=== PATIENT | female | born 1945 | race Two or more races ===

== ENCOUNTER 2017-10-16 11:10 | Outpatient (CLI) | payer OTHER ==
[~2017-10-16 11:10] MED LIST: PERCOCET 5/3251 TAB PO
== END 2017-10-16 11:28 | disposition home or self-care (01) ==
LOC: RAD 501 11:10
DX: I11.9 Hypertensive heart disease without heart failure (principal)

== ENCOUNTER → 2017-10-22 | Outpatient (CLI) | payer OTHER | END | disposition home or self-care (01) | LOC: NUCLEAR 10:30 | DX: M81.0 Age-related osteoporosis without current pathological fracture (principal) ==

== ENCOUNTER 2017-12-26 11:29 | Outpatient (CLI) | payer OTHER | END 2017-12-26 11:32 | disposition home or self-care (01) | LOC: MAMO-SONO 11:29 | DX: Z12.31 Encounter for screening mammogram for malignant neoplasm of breast (principal); Z87.898 Personal history of other specified conditions; R92.1 Mammographic calcification found on diagnostic imaging of breast; N63.11 Unspecified lump in the right breast, upper outer quadrant; N63.12 Unspecified lump in the right breast, upper inner quadrant ==

== ENCOUNTER 2018-09-11 14:09 | Outpatient (CLI) | payer OTHER | END 2018-09-11 14:15 | disposition home or self-care (01) | LOC: RAD 501 14:09 | DX: I11.9 Hypertensive heart disease without heart failure (principal); R06.02 Shortness of breath ==

== ENCOUNTER 2018-11-29 12:21 | Outpatient (CLI) | payer OTHER | END 2018-11-29 12:25 | disposition home or self-care (01) | LOC: RAD 12:21 | DX: M17.0 Bilateral primary osteoarthritis of knee (principal) ==

== ENCOUNTER 2018-12-31 11:15 | Outpatient (CLI) | payer OTHER | END 2018-12-31 11:21 | disposition home or self-care (01) | LOC: RAD 11:15 | DX: M25.561 Pain in right knee (principal); M25.562 Pain in left knee ==

== ENCOUNTER 2018-12-31 11:44 | Outpatient (CLI) | payer OTHER | END 2018-12-31 15:01 | disposition home or self-care (01) | LOC: MRI 11:44 | DX: M17.12 Unilateral primary osteoarthritis, left knee (principal); M23.207 Derangement of unspecified meniscus due to old tear or injury, left knee | CPT/HCPCS: 73721 ==

== ENCOUNTER → 2020-02-19 | Outpatient (CLI) | payer OTHER | END | disposition home or self-care (01) | LOC: MAMO-SONO 10:45 | PROVIDERS: ATTEND Specialist | DX: Z12.31 Encounter for screening mammogram for malignant neoplasm of breast (principal); N64.89 Other specified disorders of breast ==

== ENCOUNTER 2020-10-29 09:27 | Outpatient (CLI) | payer OTHER | END 2020-10-29 09:37 | disposition home or self-care (01) | LOC: RAD 09:27 | PROVIDERS: ATTEND Internal Medicine Geriatric Medicine | DX: R07.89 Other chest pain (principal); I11.9 Hypertensive heart disease without heart failure; R06.02 Shortness of breath ==

== ENCOUNTER 2021-02-23 09:41 | Outpatient (CLI) | payer OTHER | END 2021-02-23 09:52 | disposition home or self-care (01) | LOC: MAMO-SONO 09:41 | PROVIDERS: ATTEND Specialist | DX: N60.11 Diffuse cystic mastopathy of right breast (principal); N60.12 Diffuse cystic mastopathy of left breast; Z12.31 Encounter for screening mammogram for malignant neoplasm of breast ==

== ENCOUNTER 2021-09-02 13:50 | Outpatient (CLI) | payer OTHER | END 2021-09-02 13:55 | disposition home or self-care (01) | LOC: RAD 13:50 | PROVIDERS: ATTEND Internal Medicine Geriatric Medicine | DX: M17.0 Bilateral primary osteoarthritis of knee (principal) ==

== ENCOUNTER 2022-03-16 10:14 | Outpatient (CLI) | payer OTHER | END 2022-03-16 10:25 | disposition home or self-care (01) | LOC: MAMO-SONO 10:14 | PROVIDERS: ATTEND Specialist | DX: N60.11 Diffuse cystic mastopathy of right breast (principal); N60.12 Diffuse cystic mastopathy of left breast; Z12.31 Encounter for screening mammogram for malignant neoplasm of breast ==

== ENCOUNTER 2022-08-25 10:44 | Outpatient (CLI) | payer OTHER | END 2022-08-25 10:55 | disposition home or self-care (01) | LOC: RAD 10:44 | PROVIDERS: ATTEND Orthopaedic Surgery Sports Medicine | DX: M25.561 Pain in right knee (principal); M25.562 Pain in left knee ==

== ENCOUNTER 2022-12-06 09:44 | Outpatient (CLI) | payer OTHER | END 2022-12-06 09:49 | disposition home or self-care (01) | LOC: RAD 09:44 | PROVIDERS: ATTEND Internal Medicine Geriatric Medicine | DX: R06.02 Shortness of breath (principal); I11.9 Hypertensive heart disease without heart failure ==

== ENCOUNTER 2022-12-13 13:20 | Outpatient (CLI) | payer OTHER | END 2022-12-13 13:21 | disposition home or self-care (01) | LOC: NUCLEAR 13:20 | PROVIDERS: ATTEND Internal Medicine Geriatric Medicine | DX: M81.0 Age-related osteoporosis without current pathological fracture (principal); M15.0 Primary generalized (osteo)arthritis ==

== ENCOUNTER 2023-05-14 12:57 | Outpatient (CLI) | payer OTHER | END 2023-05-14 13:09 | disposition home or self-care (01) | LOC: RAD 12:57 | PROVIDERS: ATTEND Specialist | DX: N60.12 Diffuse cystic mastopathy of left breast (principal); M47.26 Other spondylosis with radiculopathy, lumbar region ==

== ENCOUNTER 2023-07-11 13:13 | Outpatient (CLI) | payer OTHER | END 2023-07-11 13:20 | disposition home or self-care (01) | LOC: RAD 13:13 | PROVIDERS: ATTEND Orthopaedic Surgery Sports Medicine | DX: M25.511 Pain in right shoulder (principal) ==

== ENCOUNTER 2024-01-18 11:23 | Outpatient (CLI) | payer OTHER | END 2024-01-18 11:26 | disposition home or self-care (01) | LOC: MRI 11:23 | PROVIDERS: ATTEND Orthopaedic Surgery Sports Medicine | DX: M75.121 Complete rotator cuff tear or rupture of right shoulder, not specified as traumatic (principal) | CPT/HCPCS: 73221 ==

== ENCOUNTER 2024-04-18 12:15 | Outpatient (CLI) | payer OTHER | END 2024-04-18 12:21 | disposition home or self-care (01) | LOC: RAD 12:15 | PROVIDERS: ATTEND Orthopaedic Surgery Sports Medicine | DX: M25.561 Pain in right knee (principal); M25.562 Pain in left knee ==

== ENCOUNTER → 2024-06-06 | Outpatient (CLI) | payer OTHER | END | disposition home or self-care (01) | LOC: MAMO-SONO 10:16 | PROVIDERS: ATTEND Specialist | DX: N60.11 Diffuse cystic mastopathy of right breast (principal); N60.12 Diffuse cystic mastopathy of left breast; D24.2 Benign neoplasm of left breast; Z12.31 Encounter for screening mammogram for malignant neoplasm of breast ==

== ENCOUNTER 2024-08-08 14:28 | Emergency (ER) | payer OTHER ==
[~2024-08-08] VITALS: Ht 147.3 cm; Wt 65.3 kg
[2024-08-08] MEDS ORDERED: COZAAR25 MG PO (14:41)
[2024-08-08] MEDS ORDERED: GLUMETZA500 MG PO (14:41)
[2024-08-08] MEDS ORDERED: TOPROL XL25 M1 PO (14:41)
[2024-08-08] MEDS ORDERED: VAZALORE81 MG PO (14:41)
[2024-08-08] MEDS ORDERED: CARDURA1 MG PO (14:41)
[2024-08-08] MEDS ORDERED: cloNIDine HCL 0.2 MG TABLET PO STA (15:13)
[2024-08-08 15:22] LABS: HEMATOCRIT 39.6 % (36.0-45.00); HEMOGLOBIN 13.4 g/dL (12.0-15.00); MEAN CELL VOLUME 96.4 fL (80.00-100.00); MEAN CORPUSCULAR HEMOGLOBIN 32.7 pg (27.00-32.0); PLATELET COUNT 229 K/uL (150-450); RED CELL DISTRIBUTION WIDTH 12.9 % (11.5-14.5)
[2024-08-08] MEDS ORDERED: CLONIDINE HCL 0.1 MG TABLET PO ONE (15:34)
[2024-08-08 15:42] LABS: CALCIUM 9.6 mg/dL (8.5-10.1); CREATININE SERUM 0.73 mg/dL (0.55-1.02); GFR 76.51; POTASSIUM 3.56 mEq/L (3.5-5.1)
[2024-08-08 15:54] LABS: PH,URINE 5.5 (5.0-8.0); URINE APPEARANCE Cloudy; URINE BILIRRUBIN Negative (NEGATIVE); URINE BLOOD NHT; URINE COLOR Yellow; URINE GLUCOSE Negative (NEGATIVE); URINE KETONE Negative (NEGATIVE); URINE LEUKOCYTE Moderate; URINE NITRATE Negative; URINE PROTEIN Negative (NEGATIVE); URINE UROBILINOGEN 0.2 E.U./dl
[2024-08-08 15:58] LABS: URINE BACTERIA 938.7 uL (0.0-1933); URINE EPITHELIAL CELLS 31.8 uL (0.0-38.8); URINE RBC 10.7 uL (0.0-20.8); URINE WBC 1181.4 uL (0.0-23.2)
[2024-08-08] MEDS ORDERED: CEFTRIAXONE SODIUM 1,000 MG VIAL IM STA (16:02)
[2024-08-08] MEDS ORDERED: CEFTRIAXONE SODIUM 1,000 MG VIAL ONE (16:27)
== END 2024-08-08 16:47 | disposition home or self-care (01) ==
LOC: ER 14:31
PROVIDERS: General Practice
DX: R30.0 Dysuria (principal)
CPT/HCPCS: 36415; 96372; 99282; J0696

== ENCOUNTER 2024-09-24 10:19 | Outpatient (CLI) | payer OTHER ==
[~2024-09-24 10:19] MED LIST changes: +CARDURA1 MG PO; +COZAAR25 MG PO; +GLUMETZA500 MG PO; +TOPROL XL25 M1 PO; +VAZALORE81 MG PO
== END 2024-09-24 10:21 | disposition home or self-care (01) ==
LOC: SONOGRAMA 10:19
PROVIDERS: ATTEND Internal Medicine Hematology & Oncology
DX: D51.1 Vitamin B12 deficiency anemia due to selective vitamin B12 malabsorption with proteinuria (principal); D72.818 Other decreased white blood cell count; E11.9 Type 2 diabetes mellitus without complications; I10 Essential (primary) hypertension; E78.2 Mixed hyperlipidemia; R10.10 Upper abdominal pain, unspecified

== ENCOUNTER 2025-05-28 10:20 | Outpatient (CLI) | payer OTHER | END 2025-05-28 10:24 | disposition home or self-care (01) | LOC: RAD 10:20 | DX: M25.561 Pain in right knee (principal); M25.562 Pain in left knee ==

== ENCOUNTER 2025-06-22 12:17 | Outpatient (CLI) | payer OTHER | END 2025-06-22 12:25 | disposition home or self-care (01) | LOC: MAMO-SONO 12:17 | PROVIDERS: ATTEND Specialist | DX: D24.1 Benign neoplasm of right breast (principal); Z12.31 Encounter for screening mammogram for malignant neoplasm of breast ==